=== PATIENT | female | born 1985 | race Caucasian/White ===

== ENCOUNTER 2025-01-19 19:08 | Emergency (ER) | payer MEDICAID ==
[~2025-01-19] VITALS: Ht 165.1 cm; Wt 69.0 kg
[2025-01-19 19:12] VITALS: O2SAT 100
[2025-01-19] MEDS ORDERED: KETOROLAC 15MG/ML VIAL IM ONE (20:15)
[2025-01-19] MEDS ORDERED: KETOROLAC 15MG/ML VIAL IM NR (20:30)
[2025-01-19] MEDS: LIDOCAINE 5% PATCH TOP SCH (20:49)
[2025-01-19] MEDS ORDERED: NAPR-1176 MT (21:56)
[2025-01-19 22:23] VITALS: BP 109/67; PULSE 85; RESP 16; TEMP 37; O2SAT 96
== END 2025-01-19 22:25 | disposition home or self-care (01) ==
LOC: ER 19:08
DX: M79.605 Pain in left leg (principal)
CPT/HCPCS: 81025; 93971; 99284; Z7610 ×2; J1885